=== PATIENT | female | born 1945 | race Two or more races ===

== ENCOUNTER 2017-11-09 00:33 | Emergency (ER) | payer OTHER ==
[2017-11-09 00:50] VITALS: BP 134/65; PULSE 79; TEMP 98; BMI 26.9
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
[2017-11-09] MEDS ORDERED: ACETAMINOPHEN 325 MG TABLET (FP) PO ONE (01:07)
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
[2017-11-09] MEDS ORDERED: ACETAMINOPHEN 325 MG TABLET (FP) ONE (01:57)
== END 2017-11-09 02:23 | disposition home or self-care (01) ==
LOC: JER 00:33
DX: S90.31XA Contusion of right foot, initial encounter (principal); V98.8XXA Other specified transport accidents, initial encounter; Y93.89 Activity, other specified; Y92.89 Other specified places as the place of occurrence of the external cause; Y99.8 Other external cause status
CPT/HCPCS: 73523-TC-FY; 73560-TC-RT-FY; 73590-TC-RT-FY; 73630-TC-RT-FY; 99281-25

== ENCOUNTER 2018-02-01 02:10 | Observation (INO) | payer OTHER ==
--- NOTE | 2018-02-01 02:33 | PDOC ---
History of Present Illness - General Stated Complaint: CHEST PAIN Time Seen by Provider: 02/01/18 02:33 Past History - Travel Traveled outside of the country in the last 30 days: No Close contact w/someone who was outside of country & ill: No - Past Medical History Allergies/Adverse Reactions: Allergies Allergy/AdvReac Type Severity Reaction Status Date / Time adhesive tape Allergy Severe Itching Verified 02/01/18 02:52 aspirin Allergy Verified 02/01/18 02:52 codeine Allergy Verified 02/01/18 02:52 levofloxacin [From Levaquin] Allergy Verified 02/01/18 02:52 Penicillins Allergy Verified 02/01/18 02:52 Sulfa (Sulfonamide Allergy Verified 02/01/18 02:52 Antibiotics) PAPER TAPE Allergy Uncoded 02/01/18 02:52 Home Medications: Ambulatory Orders Glipizide [Glipizide ER] 2.5 mg PO BID 08/06/13 Metoprolol Tartrate [Lopressor -] 50 mg PO DAILY 08/06/13 Telmisartan/Hydrochlorothiazid [Micardis Hct 80-25 mg Tablet] 1 each PO BID 08/16 Clopidogrel Bisulfate [Plavix -] 75 mg PO DAILY 05/16/14 Atorvastatin Ca [Lipitor] 40 mg PO DAILY 10/10/15 Levothyroxine [Synthroid -] 88 mcg PO DAILY 10/10/15 Anemia: No Asthma: No Cancer: No Cardiac Disorders: Yes (LBBB; CHEST PAIN - 1 YR AGO) CVA: No COPD: No CHF: No Dementia: No Diabetes: Yes GI Disorders: No Disorders: No HTN: Yes Hypercholesterolemia: Yes Liver Disease: No Seizures: No Thyroid Disease: Yes (HYPO) - Surgical History Abdominal Surgery: No Appendectomy: No Cholecystectomy: No Orthopedic Surgery: No - Suicide/Smoking/Psychosocial Hx Smoking History: Never smoked Have you smoked in the past 12 months: No Hx Alcohol Use: No Drug/Substance Use Hx: No Substance Use Type: None Review of Systems - Review of Systems Constitutional: No: Symptoms Reported, See HPI, Chills, Diaphoresis, Fever, Loss of Appetite, Malaise, Night Sweats, Weakness, Weight Stable, Unintentional Wgt. Loss, Unexplained wgt Loss, Other HEENTM: No: Symptoms Reported, See HPI, Eye Pain, Blurred Vision, Tearing, Recent change in vision, Double Vision, Cataracts, Ear Pain, Ocular Prothesis, Ear Discharge, Nose Pain, Nose Congestion, Tinnitus, Nose Bleeding, Hearing Loss , Throat Pain, Throat Swelling, Mouth Pain, Dental Problems, Difficulty Swallowing, Mouth Swelling, Other Respiratory: No: Symptoms reported, See HPI, Cough, Orthopnea, Shortness of Breath, SOB with Exertion, SOB at Rest, Stridor, Wheezing, Productive cough, Hemoptysis, Other Cardiac (ROS): No: Symptoms Reported, See HPI, Chest Pain, Edema, Irregular Heart Rate, Lightheadedness, Palpitations, Syncope, Chest Tightness, Other ABD/GI: Yes: Indigestion (pt ate a bunch of lentils today). No: Symptoms Reported, See HPI, Abdominal Distended, Abd. Pain w/ defecation, Blood Streaked Bowels, Constipated, Diarrhea, Difficulty Swallowing, Nausea, Poor Appetite, Poor Fluid Intake, Rectal Bleeding, Vomiting, Abdominal cramping, Tarry Stools, Other : No: Symptoms Reported, See HPI, Burning, Dysuria, Discharge, Frequency, Flank Pain, Hematuria, Incontinence, Pain, Urgency, Testicular Mass, Testicular Swelling, Lesions, Testicular Pain, Other Musculoskeletal: No: Symptoms Reported, See HPI, Back Pain, Gout, Joint Pain, Joint Swelling, Muscle Pain, Muscle Weakness, Neck Pain, Joint Stiffness, Other Integumentary: No: Symptoms Reported, See HPI, Bruising, Change in Color, Change in Hair/Nails, Dryness, Erythema, Flushing, Lesions, Lumps, Pallor, Pruritus, Rash, Sweating, Other Neurological: No: Symptoms reported, See HPI, Headache, Numbness, Paresthesia, Pre-Existing Deficit, Seizure, Tingling, Tremors, Weakness, Unsteady Gait, Ataxia, Dizziness, Other *Physical Exam - Physical Exam General Appearance: Yes: Nourished, Appropriately Dressed. No: Apparent Distress HEENT: positive: EOMI, JANAK, Normal ENT Inspection, Normal Voice, Symmetrical, TMs Normal, Pharynx Normal Neck: positive: Trachea midline, Supple Respiratory/Chest: positive: Lungs Clear, Normal Breath Sounds. negative: Respiratory Distress Cardiovascular: positive: Regular Rhythm, Regular Rate, S1, S2 Gastrointestinal/Abdominal: positive: Normal Bowel Sounds, Flat, Soft Musculoskeletal: positive: Normal Inspection. 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, Fully Oriented, Alert, Normal Mood/ Affect, Normal Response, Motor Strength 5/5 Heart Score/ECG Review - History History: Slightly suspicious - Electrocardiogram EKG: Non specific repolarization disturbance - Age Age: >/= 65 - Risk Factors Risk Factors Heart Score: Yes Hx Hypercholesterolemia, Yes Hx Hypertension, Yes Hx Diabetes Based on the list above the patient has:: >/=3 risk factors or Hx atherosclerotic disease - Troponin Troponin: </= normal limit - Score Heart Score - Total: 5 - ECG Intrepretation Rhythm: Regular Rhythm - Brock Brock: Left Brock Deviation - QRS Widened: LBBB ED Treatment Course - LABORATORY CBC & Chemistry Diagram: 02/01/18 03:00 02/01/18 03:00 Medical Decision Making - Medical Decision Making 02/01/18 03:00 Pt comes with left side CP that radiates to her left arm. Pt describes it as a heaviness. She has no SOB and she has no fever and no musculoskeletal tenderness. She has an old LBBB on the EKG. 02/01/18 03:02 Pt's CXR and labs are pending and we may admit her to her PMD Devin Richmond vs just checking a 2nd cardiac enzyme. 02/01/18 04:[address] Richmond, who agrees that pt can be admitted to the hospitalist. *DC/Admit/Observation/Transfer Diagnosis at time of Disposition: Chest pain - Discharge Dispostion Condition at time of disposition: Guarded Decision to Admit order: Yes - Referrals Referrals: Devin Richmond MD [Primary Care Provider] - - Patient Instructions - Post Discharge Activity
[2018-02-01] MEDS ORDERED: MAG HYDROX/AL HYDROX/SIMETH 30 ML UNIT-DOSE CUP PO ONE (02:44)
[2018-02-01 02:53] VITALS: BMI 26.6
[2018-02-01] MEDS ORDERED: MAG HYDROX/AL HYDROX/SIMETH 30 ML UNIT-DOSE CUP ONE (02:55)
[2018-02-01 03:00] LABS: URINE APPEARANCE CLEAR; URINE BILIRUBIN NEGATIVE (<2.0 mg/dL); URINE COLOR COLORLESS; URINE GLUCOSE (UA) NEGATIVE (NEGATIVE); URINE KETONE NEGATIVE (NEGATIVE); URINE LEUK ESTERASE TRACE (NEGATIVE); URINE NITRITE NEGATIVE (NEGATIVE); URINE PROTEIN NEGATIVE (NEGATIVE); URINE UROBILINOGEN NEGATIVE mg/dL (0.2-1.0)
[2018-02-01 03:12] LABS: BASO % 0.4 % (0-2.0); HEMATOCRIT 37.2 % (32.4-45.2); HEMOGLOBIN 12.3 GM/dL (10.7-15.3); LYMPH % 37.7 % (8-40); MCH 29.9 pg (25.7-33.7); MCHC 33.2 g/dl (32.0-36.0); MEAN PLT VOLUME 9.7 fl (7.5-11.1); MONO % 5.9 % (3.8-10.2); PLATELET COUNT 177 K/MM3 (134-434); RBC 4.13 M/mm3 (3.60-5.2); RDW 13.4 % (11.6-15.6); WHITE BLOOD COUNT 8.6 K/mm3 (4.0-10.0)
[2018-02-01 03:24] LABS: PROTHROMBIN TIME (PATIENT) 11.8 SEC (9.7-13.0)
[2018-02-01 03:35] LABS: ALK PHOS 90 U/L (45-117); ANION GAP 7 MMOL/L (8-16); BILIRUBIN,TOTAL 0.3 mg/dL (0.2-1); BLOOD UREA NITROGEN 33 mg/dL (7-18); CALCIUM 8.9 mg/dL (8.5-10.1); CHLORIDE 100 mmol/L (98-107); CO2 28 mmol/L (21-32); CREATININE 1.2 mg/dL (0.55-1.3); GLUCOSE,RANDOM 89 mg/dL (74-106); POTASSIUM 3.9 mmol/L (3.5-5.1); SGOT/AST 28 U/L (15-37); SGPT/ALT 37 U/L (13-61); SODIUM 135 mmol/L (136-145); TOT PROT 7.5 g/dl (6.4-8.2)
[2018-02-01] MEDS ORDERED: ACETAMINOPHEN 325 MG TABLET (FP) PO PRN (05:22)
--- NOTE | 2018-02-01 05:38 | HP ---
CHIEF COMPLAINT: Chest discomfort PCP: Devin Richmond HISTORY OF PRESENT ILLNESS: 72 yo Female with PMH HTN, known LBBB, Hypothyroidism, NIDDM, presented to the ED with complaint of chest discomfort that began last night. She says it began before going to bed. She though if she lied down it would resolve, though it actually got worse and began to radiate to her axilla. She describes the pain as sharp discomfort. She states the pain is still there and has not completely resolved, though the mylanta given earlier did provide some relief and decreased her burping. She is also endorsing some LLQ pain that comes and goes that started today. Denies any recent fever, chills, infection, nausea, vomiting , diarrhea. She says her bowel movements are regular and she denies any blood in her stool at any point ER course was notable for: (1) ECG: known LBBB, no acute ischemic changes (2) Troponin negative (3) Mylanta given with some relief Recent Travel: None PAST MEDICAL HISTORY: HTN, LBBB, Hypothyroidism, NIDDM PAST SURGICAL HISTORY: Social History: Smoking: none Alcohol: none Drugs: none Family History: Allergies adhesive tape Allergy (Severe, Verified 02/01/18 02:52) Itching RASH aspirin Allergy (Verified 02/01/18 02:52) codeine Allergy (Verified 02/01/18 02:52) levofloxacin [From Levaquin] Allergy (Verified 02/01/18 02:52) Penicillins Allergy (Verified 02/01/18 02:52) Sulfa (Sulfonamide Antibiotics) Allergy (Verified 02/01/18 02:52) PAPER TAPE Allergy (Uncoded 02/01/18 02:52) HOME MEDICATIONS: Home Medications Medication Instructions Recorded Glipizide [Glipizide ER] 2.5 mg PO BID 08/06/13 Metoprolol Tartrate [Lopressor -] 50 mg PO DAILY 08/06/13 Telmisartan/Hydrochlorothiazid 1 each PO BID 08/06/13 [Micardis Hct 80-25 mg Tablet] Clopidogrel Bisulfate [Plavix -] 75 mg PO DAILY 05/16/14 Atorvastatin Ca [Lipitor] 40 mg PO DAILY 10/10/15 Levothyroxine [Synthroid -] 88 mcg PO DAILY 10/10/15 REVIEW OF SYSTEMS CONSTITUTIONAL: Absent: fever, chills, diaphoresis, generalized weakness, malaise, loss of appetite, weight change HEENT: Absent: rhinorrhea, nasal congestion, throat pain, throat swelling, difficulty swallowing, mouth swelling, ear pain, eye pain, visual changes CARDIOVASCULAR: chest pain Absent: , syncope, palpitations, irregular heart rate, lightheadedness, peripheral edema RESPIRATORY: cough, dyspnea with exertion Absent: , shortness of breath, orthopnea, wheezing, stridor, hemoptysis GASTROINTESTINAL: abdominal pain, Absent: abdominal distension, nausea, vomiting, diarrhea, constipation, melena , hematochezia GENITOURINARY: Absent: dysuria, frequency, urgency, hesitancy, hematuria, flank pain, genital pain MUSCULOSKELETAL: Absent: myalgia, arthralgia, joint swelling, back pain, neck pain SKIN: Absent: rash, itching, pallor HEMATOLOGIC/IMMUNOLOGIC: Absent: easy bleeding, easy bruising, lymphadenopathy, frequent infections ENDOCRINE: Absent: unexplained weight gain, unexplained weight loss, heat intolerance, cold intolerance NEUROLOGIC: Absent: headache, focal weakness or paresthesias, dizziness, unsteady gait, seizure, mental status changes, bladder or bowel incontinence PSYCHIATRIC: Absent: anxiety, depression, suicidal or homicidal ideation, hallucinations. PHYSICAL EXAMINATION Vital Signs - 24 hr 02/01/18 02:20 Temperature 98.6 F Pulse Rate 75 Respiratory 18 Rate Blood Pressure 146/55 L O2 Sat by Pulse 97 Oximetry (%) GENERAL: A&O, no acute distress HEAD: Normocephalic, atraumatic. EYES: PERRL, no scleral icterus EARS, NOSE, THROAT: oropharynx clear without exudates. Moist mucous membranes. NECK: supple without lymphadenopathy LUNGS: CTA b/l, no crackles or wheezes HEART: Regular rate and rhythm, normal S1 and S2, 2/6 systolic murmur ABDOMEN: Soft, nontender to palpation, normoactive bowel sounds MUSCULOSKELETAL: No bony deformities or tenderness. EXTREMITIES: 2+ pulses, warm, well-perfused. No peripheral edema. NEUROLOGICAL: Cranial nerves II-XII grossly intact. Normal speech. PSYCHIATRIC: Cooperative. Good eye contact. Appropriate mood and affect. Laboratory Results - last 24 hr 02/01/18 02/01/18 02/01/18 02:46 03:00 03:00 WBC 8.6 RBC 4.13 Hgb 12.3 Hct 37.2 MCV 90.0 MCH 29.9 MCHC 33.2 RDW 13.4 Plt Count 177 D MPV 9.7 Absolute Neuts (auto) 4.5 Neutrophils % 52.0 D Lymphocytes % 37.7 D Monocytes % 5.9 Eosinophils % 4.0 Basophils % 0.4 Nucleated RBC % 0 PT with INR INR Sodium 135 L Potassium 3.9 Chloride 100 Carbon Dioxide 28 Anion Gap 7 L BUN 33 H Creatinine 1.2 Creat Clearance w eGFR 44.16 Random Glucose 89 Calcium 8.9 Total Bilirubin 0.3 AST 28 ALT 37 Alkaline Phosphatase 90 Creatine Kinase 271 H Creatine Kinase Index 2.1 CK-MB (CK-2) 5.9 H Troponin I < 0.02 Total Protein 7.5 Albumin 4.0 Cholesterol Urine Color Colorless Urine Appearance Clear Urine pH 5.0 Ur Specific [place] 1.004 Urine Protein Negative Urine Glucose (UA) Negative Urine Ketones Negative Urine Blood Negative Urine Nitrite Negative Urine Bilirubin Negative Urine Urobilinogen Negative Ur Leukocyte Esterase Trace Urine WBC (Auto) 1 Urine RBC (Auto) None 02/01/18 02/01/18 03:00 03:00 WBC RBC Hgb Hct MCV MCH MCHC RDW Plt Count MPV Absolute Neuts (auto) Neutrophils % Lymphocytes % Monocytes % Eosinophils % Basophils % Nucleated RBC % PT with INR 11.80 INR 1.00 Sodium Potassium Chloride Carbon Dioxide Anion Gap BUN Creatinine Creat Clearance w eGFR Random Glucose Calcium Total Bilirubin AST ALT Alkaline Phosphatase Creatine Kinase Creatine Kinase Index CK-MB (CK-2) Troponin I Total Protein Albumin Cholesterol 121 Urine Color Urine Appearance Urine pH Ur Specific [place] Urine Protein Urine Glucose (UA) Urine Ketones Urine Blood Urine Nitrite Urine Bilirubin Urine Urobilinogen Ur Leukocyte Esterase Urine WBC (Auto) Urine RBC (Auto) ASSESSMENT/PLAN: 72 yo Female with PMH HTN, known LBBB, Hypothyroidism, NIDDM placed into observation for chest pain with known LBBB, pt on plavix daily, r/o ACS. R/O ACS -Pt with worsening pain upon lying down flat which radiates to axilla -ECG noted with prior LBBB, Troponin negative, CK-MB noted 5.9 -Repeat Troponin and Repeat ECG @ 800 -Cardiology consult placed -Pt did receive some relief from mylanta, will add PRN -Tylenol 650 mg PO PRN Q6 HTN -Resume home BP meds -Telmisartan/HCTZ 80-25 mg PO Daily HLD -Lipitor 40 mg PO HS Hypothyroidism -Continue synthroid 88 mcg PO Daily @ 7:00 NIDDM -Held home meds -BGMs ACHS -Insulin Sliding Scale for glycemic control DVT Prophylaxis -Pt on plavix 75 mg PO Daily FEN -Fluids: none -Electrolytes: No electrolyte abnormalities, BMP in AM -Nutrition: Low Salt diet Disposition Tele Obs Visit type - Emergency Visit Emergency Visit: Yes Care time: The patient presented to the Emergency Department on the above date and was hospitalized for further evaluation of their emergent condition. - New Patient This patient is new to me today: Yes Date on this admission: 02/01/18 - Critical Care Critical Care patient: No Hospitalist Screening - Colonoscopy Questionnaire Colonoscopy Questionnaire: Colonoscopy Questionnaire - Patient: 50 - 75 years old and never had a screening colonoscopy: No History of colon or rectal polyps, or CA: No History of IBD, Crohn's disease or UC: No History of abdominal radiation therapy as a child: No - Relative: 1 with colon or rectal CA, or polyps at age 60 or younger: No Colon or rectal CA diagnosed at age 45 or younger: No Multiple relatives with colon or rectal CA: No - Outcome: Screening Result: Negative Screen
[2018-02-01] MEDS: INSULIN SLIDING SCALE (NOVOLOG) 1 VIAL SQ SCH ×2 (06:00→11:51)
--- NOTE | 2018-02-01 06:27 | PN ---
Teaching Attending Note Name of Resident: Ruddy May ATTENDING PHYSICIAN STATEMENT I saw and evaluated the patient. I reviewed the resident's note and discussed the case with the resident. I agree with the resident's findings and plan as documented. SUBJECTIVE: OBJECTIVE: ASSESSMENT AND PLAN: 72 y/o F with hypothyrodism LBBB, HTN, DM, DL presented to the hospital for atypical chest pain that is reproducible patient is also complaining of worsening SOB for the past few days, without any swelling admitted for hospital to r/o ACS plan: - admit to the hospital to tele obs -Aspirin - statin - trend trop - trend ecg - cardiology consultation - c/w home medication - c/w levothyroxine - echocardiogram
[2018-02-01] MEDS ORDERED: LEVOTHYROXINE NA 88 MCG TABLET (FP) PO SCH (07:00)
[2018-02-01 08:24] LABS: HEMATOCRIT 38.3 % (32.4-45.2); HEMOGLOBIN 12.4 GM/dL (10.7-15.3); MCHC 32.3 g/dl (32.0-36.0); MEAN CELL VOLUME 89.9 fl (80-96); PLATELET COUNT 176 K/MM3 (134-434); RBC 4.27 M/mm3 (3.60-5.2); RDW 13.3 % (11.6-15.6); WHITE BLOOD COUNT 8.5 K/mm3 (4.0-10.0)
[2018-02-01 08:40] LABS: INR 0.99 (0.83-1.09); PROTHROMBIN TIME (PATIENT) 11.7 SEC (9.7-13.0)
[2018-02-01 08:54] LABS: ANION GAP 7 MMOL/L (8-16); BLOOD UREA NITROGEN 27 mg/dL (7-18); CALCIUM 9.4 mg/dL (8.5-10.1); CHLORIDE 98 mmol/L (98-107); CO2 27 mmol/L (21-32); CREATININE 1.2 mg/dL (0.55-1.3); GLUCOSE,RANDOM 228 mg/dL (74-106); POTASSIUM 3.8 mmol/L (3.5-5.1); SODIUM 132 mmol/L (136-145)
[2018-02-01] MEDS ORDERED: CLOPIDOGREL BISULFATE 75 MG TABLET (FP) PO SCH (10:00)
[2018-02-01] MEDS ORDERED: PATIENT'S OWN MEDICATION (NON-FORMULARY) (Telmisartan/Hydrochlorothiazid [Micardis Hct 80- PO SCH (10:00)
[2018-02-01] MEDS ORDERED: ATORVASTATIN CA 40 MG TABLET (FP) PO SCH (10:00)
[2018-02-01] MEDS ORDERED: METOPROLOL TARTRATE 50 MG TABLET (FP) PO SCH ×2 (10:00→22:00)
[2018-02-01] MEDS ORDERED: BUDESONIDE/FORMETEROL FUMARATE 160/4.5 mcg INHALER IH SCH (12:00)
[2018-02-01] MEDS ORDERED: LOSARTAN POTASSIUM 50 MG TABLET (FP) PO SCH (12:00)
[2018-02-01] MEDS ORDERED: HYDROCHLOROTHIAZIDE 12.5 MG CAPSULE (FP) PO SCH (12:00)
--- NOTE | 2018-02-01 15:05 | DS ---
Physical Exam: SUBJECTIVE: Patient seen and examined, reports minimal pain below left breast, tender to touch and worse with twisting and left shoulder elevation. OBJECTIVE: Vital Signs Period Temp Pulse Resp BP Sys/Beebe Pulse Ox Last 24 Hr 97.5 F-98.6 F 66-77 17-20 116-147/43-68 97-100 PHYSICAL EXAM GENERAL: The patient is awake, alert, and fully oriented, in no acute distress. HEAD: Normal with no signs of trauma. EYES: PERRL, extraocular movements intact, sclera anicteric, conjunctiva clear. ENT: Ears normal, nares patent, oropharynx clear without exudates, moist mucous membranes. NECK: Trachea midline, full range of motion, supple. LUNGS: Breath sounds equal, clear to auscultation bilaterally, no wheezes, no crackles, no accessory muscle use. MUSCULOSKELETAL: tenderness over chest wall below left breast, pain with left arm movements, rull ROM left shoulder with no swelling/erythema or concerns. HEART: Regular rate and rhythm, S1, S2 without murmur, rub or gallop. ABDOMEN: Soft, nontender, nondistended, normoactive bowel sounds, no guarding, no rebound, no hepatosplenomegaly, no masses. EXTREMITIES: 2+ pulses, warm, well-perfused, no edema. NEUROLOGICAL: Cranial nerves II through XII grossly intact. Normal speech, gait not observed. PSYCH: Normal mood, normal affect. SKIN: Warm, dry, normal turgor, no rashes or lesions noted. LABS Laboratory Results - last 24 hr 02/01/18 02/01/18 02/01/18 02:46 03:00 03:00 WBC 8.6 RBC 4.13 Hgb 12.3 Hct 37.2 MCV 90.0 MCH 29.9 MCHC 33.2 RDW 13.4 Plt Count 177 D MPV 9.7 Absolute Neuts (auto) 4.5 Neutrophils % 52.0 D Lymphocytes % 37.7 D Monocytes % 5.9 Eosinophils % 4.0 Basophils % 0.4 Nucleated RBC % 0 PT with INR INR Sodium 135 L Potassium 3.9 Chloride 100 Carbon Dioxide 28 Anion Gap 7 L BUN 33 H Creatinine 1.2 Creat Clearance w eGFR 44.16 POC Glucometer Random Glucose 89 Calcium 8.9 Total Bilirubin 0.3 AST 28 ALT 37 Alkaline Phosphatase 90 Creatine Kinase 271 H Creatine Kinase Index 2.1 CK-MB (CK-2) 5.9 H Troponin I < 0.02 B-Natriuretic Peptide Total Protein 7.5 Albumin 4.0 Cholesterol Urine Color Colorless Urine Appearance Clear Urine pH 5.0 Ur Specific [place] 1.004 Urine Protein Negative Urine Glucose (UA) Negative Urine Ketones Negative Urine Blood Negative Urine Nitrite Negative Urine Bilirubin Negative Urine Urobilinogen Negative Ur Leukocyte Esterase Trace Urine WBC (Auto) 1 Urine RBC (Auto) None 02/01/18 02/01/18 02/01/18 03:00 03:00 05:58 WBC RBC Hgb Hct MCV MCH MCHC RDW Plt Count MPV Absolute Neuts (auto) Neutrophils % Lymphocytes % Monocytes % Eosinophils % Basophils % Nucleated RBC % PT with INR 11.80 INR 1.00 Sodium Potassium Chloride Carbon Dioxide Anion Gap BUN Creatinine Creat Clearance w eGFR POC Glucometer 102.64360 Random Glucose Calcium Total Bilirubin AST ALT Alkaline Phosphatase Creatine Kinase Creatine Kinase Index CK-MB (CK-2) Troponin I B-Natriuretic Peptide Total Protein Albumin Cholesterol 121 Urine Color Urine Appearance Urine pH Ur Specific [place] Urine Protein Urine Glucose (UA) Urine Ketones Urine Blood Urine Nitrite Urine Bilirubin Urine Urobilinogen Ur Leukocyte Esterase Urine WBC (Auto) Urine RBC (Auto) 02/01/18 02/01/18 02/01/18 08:08 08:08 08:08 WBC 8.5 RBC 4.27 Hgb 12.4 Hct 38.3 MCV 89.9 MCH 29.0 MCHC 32.3 RDW 13.3 Plt Count 176 MPV 10.0 Absolute Neuts (auto) Neutrophils % Lymphocytes % Monocytes % Eosinophils % Basophils % Nucleated RBC % PT with INR INR Sodium 132 L Potassium 3.8 Chloride 98 Carbon Dioxide 27 Anion Gap 7 L BUN 27 H Creatinine 1.2 Creat Clearance w eGFR 44.16 POC Glucometer Random Glucose 228 H Calcium 9.4 Total Bilirubin AST ALT Alkaline Phosphatase Creatine Kinase Creatine Kinase Index CK-MB (CK-2) Troponin I < 0.02 B-Natriuretic Peptide 65.9 Total Protein Albumin Cholesterol Urine Color Urine Appearance Urine pH Ur Specific [place] Urine Protein Urine Glucose (UA) Urine Ketones Urine Blood Urine Nitrite Urine Bilirubin Urine Urobilinogen Ur Leukocyte Esterase Urine WBC (Auto) Urine RBC (Auto) 02/01/18 02/01/18 08:08 11:51 WBC RBC Hgb Hct MCV MCH MCHC RDW Plt Count MPV Absolute Neuts (auto) Neutrophils % Lymphocytes % Monocytes % Eosinophils % Basophils % Nucleated RBC % PT with INR 11.70 INR 0.99 Sodium Potassium Chloride Carbon Dioxide Anion Gap BUN Creatinine Creat Clearance w eGFR POC Glucometer 143.34283 Random Glucose Calcium Total Bilirubin AST ALT Alkaline Phosphatase Creatine Kinase Creatine Kinase Index CK-MB (CK-2) Troponin I B-Natriuretic Peptide Total Protein Albumin Cholesterol Urine Color Urine Appearance Urine pH Ur Specific [place] Urine Protein Urine Glucose (UA) Urine Ketones Urine Blood Urine Nitrite Urine Bilirubin Urine Urobilinogen Ur Leukocyte Esterase Urine WBC (Auto) Urine RBC (Auto) HOSPITAL COURSE: Date of Admission:02/01/18 Date of Discharge: 02/01/18 Minutes to complete discharge: 35 Discharge Summary Reason For Visit: CHEST PAIN Current Active Problems Chest pain (Acute) Hospital Course: Patient reported chest pain below left breast area, reproducible to touch and worsened with left arm movements. She was watched on telemetry with no events, ACS was ruled out. Her LBBB was confirmed to be old. She reported being taken off Plavix outpatient and only taking ASA daily. Her symptoms had improved with no concerns or limitation in activity. She was evaluated by cardiology Dr. Gibbs and deemed stable for discharge with outpatient follow up. Condition: Good - Instructions Diet, Activity, Other Instructions: You were watch on monitor and heart attack was ruled out. You were seen by special events manager and deemed stable for discharge. Please continue all your medications as before and follow up with your regular doctor and special events manager in 1 week. Call 911 or come to ED if worsening pain, trouble breathing, fevers, chills, new cough or any new concerns noted. Referrals: Devin Richmond MD [Primary Care Provider] - Disposition: HOME - Home Medications Comprehensive Discharge Medication List: Ambulatory Orders Glipizide [Glipizide ER] 2.5 mg PO BID 08/06/13 Metoprolol Tartrate [Lopressor -] 50 mg PO BID 08/06/13 Telmisartan/Hydrochlorothiazid [Micardis Hct 80-25 mg Tablet] 1 each PO DAILY Atorvastatin Ca [Lipitor] 80 mg PO DAILY 10/10/15 Aspirin [ASA -] 81 mg PO DAILY 02/01/18 Budesonide/Formeterol Fumarate [SYMBICORT 160/4.5mcg -] 2 inh PO BID 02/01/18 Calcium Carbonate [Calcium] 500 mg PO DAILY 02/01/18 Cholecalciferol (Vitamin D3) [Vitamin D3] 5,000 unit PO DAILY 02/01/18 Metformin HCl [Glucophage] 500 mg PO DAILY 02/01/18 Multivitamin/Iron/Folic Acid [Centrum Adults Tablet] 1 each PO DAILY 02/01/18 Spironolactone [Aldactone] 50 mg PO DAILY 02/01/18 This patient is new to me today: Yes Date on this admission: 02/01/18 Emergency Visit: Yes ED Registration Date: 02/01/18 Care time: The patient presented to the Emergency Department on the above date and was hospitalized for further evaluation of their emergent condition. Critical Care patient: No - Discharge Referral Referred to [facility] No
[2018-02-01 15:25] VITALS: BP 118/58; PULSE 73; TEMP 98
--- NOTE | 2018-02-02 06:13 | EKG ---
Test Reason : Blood Pressure : / mmHG Vent. Rate : 076 BPM Atrial Rate : 076 BPM P-R Int : 146 ms QRS Dur : 134 ms QT Int : 440 ms P-R-T Axes : 055 -13 111 degrees QTc Int : 495 ms NORMAL SINUS RHYTHM LEFT BUNDLE BRANCH BLOCK ABNORMAL ECG WHEN COMPARED WITH ECG OF 01-FEB-2018 02:25, NO SIGNIFICANT CHANGE WAS FOUND Confirmed by NERIS ALCARAZ MD ([id number]) on 02/02/2018 6:13:11 AM Referred By: Confirmed By:NERIS ALCARAZ MD
--- NOTE | 2018-02-02 06:15 | EKG ---
Test Reason : Blood Pressure : / mmHG Vent. Rate : 074 BPM Atrial Rate : 074 BPM P-R Int : 148 ms QRS Dur : 130 ms QT Int : 430 ms P-R-T Axes : 046 -18 112 degrees QTc Int : 477 ms NORMAL SINUS RHYTHM LEFT BUNDLE BRANCH BLOCK ABNORMAL ECG WHEN COMPARED WITH ECG OF 26-MAY-2014 07:06, PREMATURE VENTRICULAR COMPLEXES ARE NO LONGER PRESENT Confirmed by LISSA ORTIZ, NERIS ([id number]) on 02/02/2018 6:14:53 AM Referred By: Confirmed By:NERIS ALCARAZ MD
== END 2018-02-01 15:15 | disposition home or self-care (01) ==
LOC: JER 02:10 → JERBED 04:09
PROVIDERS: ADMIT Internal Medicine; ATTEND Hospitalist
DX: R07.9 Chest pain, unspecified (principal); I10 Essential (primary) hypertension; E78.5 Hyperlipidemia, unspecified; E11.9 Type 2 diabetes mellitus without complications; E03.9 Hypothyroidism, unspecified; I44.7 Left bundle-branch block, unspecified; Z88.0 Allergy status to penicillin; Z88.1 Allergy status to other antibiotic agents; Z88.2 Allergy status to sulfonamides; Z88.5 Allergy status to narcotic agent; Z88.6 Allergy status to analgesic agent; Z91.048 Other nonmedicinal substance allergy status; Z79.84 Long term (current) use of oral hypoglycemic drugs
CPT/HCPCS: 36415; 71046-TC-FY; 80048; 80053; 81003; 81015; 82465; 82550; 82553; 82962; 83880; 84484; 85025; 85027; 85610; 93005; 93010; 99284-25; G0378

== ENCOUNTER 2020-10-04 00:04 | Inpatient (IN) | payer OTHER ==
[2020-10-04 02:04] LABS: BASO % 0.5 % (0-2.0); HEMATOCRIT 35.7 % (32.4-45.2); HEMOGLOBIN 11.7 GM/dL (10.7-15.3); LYMPH % 19.6 % (8-40); MCH 28.9 pg (25.7-33.7); MCHC 32.9 g/dl (32.0-36.0); MEAN CELL VOLUME 87.8 fl (80-96); MEAN PLT VOLUME 9.9 fl (7.5-11.1); NEUT % 74.9 % (42.8-82.8); PLATELET COUNT 257 K/MM3 (134-434); RBC 4.07 M/mm3 (3.60-5.2); RDW 13.1 % (11.6-15.6); WHITE BLOOD COUNT 11.9 K/mm3 (4.0-10.0)
[2020-10-04 02:23] LABS: CHLORIDE 89 mmol/L (98-107); SODIUM 121 mmol/L (136-145)
[2020-10-04 02:25] LABS: CALCIUM 8.9 mg/dL (8.5-10.1)
[2020-10-04 02:26] LABS: ALBUMIN 4.1 g/dl (3.4-5.0); ANION GAP 8 MMOL/L (8-16); BLOOD UREA NITROGEN 40.2 mg/dL (7-18); CO2 24 mmol/L (21-32); GLUCOSE,RANDOM 203 mg/dL (74-106)
[2020-10-04 02:29] LABS: SGOT/AST 44 U/L (15-37); SGPT/ALT 36 U/L (13-61)
[2020-10-04 02:31] LABS: BILIRUBIN,TOTAL 0.6 mg/dL (0.2-1); TOT PROT 7.8 g/dl (6.4-8.2)
[2020-10-04 02:32] LABS: ALK PHOS 120 U/L (45-117)
[2020-10-04 02:34] LABS: N-TERMINAL BNP 107.5 pg/ml (5-450)
[2020-10-04] MEDS ORDERED: MAG HYDROX/AL HYDROX/SIMETH 30 ML UNIT-DOSE CUP PO ONE (02:45)
[2020-10-04] MEDS ORDERED: MAG HYDROX/AL HYDROX/SIMETH 30 ML UNIT-DOSE CUP ONE (02:49)
[2020-10-04 02:52] LABS: CREATININE 1.7 mg/dL (0.55-1.3)
[2020-10-04] MEDS ORDERED: SODIUM CHLORIDE 0.9% 500 ML INFUS.BAG IV ONE (03:13)
[2020-10-04] MEDS ORDERED: ACETAMINOPHEN 1000 MG/100 ML VIAL (NON FORMULARY) IVPB ONE (03:26)
[2020-10-04] MEDS ORDERED: ASPIRIN 81 MG CHEWABLE TABLETS PO ONE (03:30)
[2020-10-04] MEDS ORDERED: ASPIRIN 81 MG CHEWABLE TABLETS ONE ×2 (04:08→09:43)
[2020-10-04] MEDS ORDERED: ACETAMINOPHEN INJECTION 100 ML IVPB ONE ×2 (04:08→05:21)
[2020-10-04 05:08] LABS: URINE APPEARANCE CLEAR; URINE BILIRUBIN NEGATIVE (NEGATIVE); URINE COLOR YELLOW; URINE GLUCOSE (UA) TRACE (NEGATIVE); URINE KETONE NEGATIVE (NEGATIVE); URINE LEUK ESTERASE NEGATIVE (NEGATIVE); URINE NITRITE NEGATIVE (NEGATIVE); URINE PROTEIN NEGATIVE (NEGATIVE); URINE UROBILINOGEN 0.2 mg/dL (0.2-1.0)
[2020-10-04] MEDS ORDERED: MAG HYDROX/AL HYDROX/SIMETH 30 ML UNIT-DOSE CUP PO PRN (06:26)
[2020-10-04] MEDS ORDERED: SODIUM ZIRCONIUM CYCLOSILICATE (LOKELMA) 5 GM PACKET PO ONE (06:27)
[2020-10-04] MEDS ORDERED: CALCIUM GLUCONATE 10% - 1,000 MG/10 ML VIAL IVPUSH ONE (06:27)
[2020-10-04] MEDS ORDERED: INSULIN REGULAR HUMAN 100 UNITS/ML *VIAL SQ ONE (06:27)
[2020-10-04] MEDS ORDERED: SODIUM CHLORIDE 1,000 ML IV SCH (06:30)
[2020-10-04] MEDS ORDERED: DEXTROSE 50%-WATER - 25 GM/50 ML VIAL IVPUSH ONE (06:31)
[2020-10-04] MEDS ORDERED: SODIUM CHLORIDE 1,000 ML IV STA (07:01)
[2020-10-04] MEDS ORDERED: LEVOTHYROXINE NA 25 MCG TABLET (FP) ONE (08:03)
[2020-10-04] MEDS ORDERED: HEPARIN NA (PORCINE) 5,000 UNITS/ML 1ML VIAL ONE (08:04)
[2020-10-04] MEDS: HEPARIN NA (PORCINE) 5,000 UNITS/ML 1ML VIAL SQ SCH ×3 (08:07→21:07)
[2020-10-04] MEDS: LEVOTHYROXINE NA 50 MCG TABLET (FP) PO SCH (08:07)
[2020-10-04] MEDS: INSULIN SLIDING SCALE (NOVOLOG) 1 VIAL SQ SCH ×4 (08:27→21:06)
[2020-10-04] MEDS ORDERED: METOPROLOL TARTRATE 50 MG TABLET (FP) ONE (09:43)
[2020-10-04] MEDS ORDERED: FAMOTIDINE 20 MG/50 ML IVPB 20 MG/50 ML MG IVPB ONE (09:43)
[2020-10-04] MEDS: METOPROLOL TARTRATE 50 MG TABLET (FP) PO SCH ×2 (09:46→09:52)
[2020-10-04] MEDS: ASPIRIN 81 MG CHEWABLE TABLETS PO SCH ×2 (09:46→09:52)
[2020-10-04] MEDS: FAMOTIDINE 20 MG/50 ML IVPB 20 MG/50 ML MG IVPB SCH (09:46)
[2020-10-04] MEDS ORDERED: METOCLOPRAMIDE HCL INJECTION 10 MG/2 ML VIAL IVPUSH PRN (10:03)
[2020-10-04 10:16] LABS: BASO % 0.5 % (0-2.0); EOS % 2.2 % (0-4.5); HEMATOCRIT 34.4 % (32.4-45.2); HEMOGLOBIN 11.4 GM/dL (10.7-15.3); LYMPH % 26.7 % (8-40); MCHC 33.1 g/dl (32.0-36.0); MEAN CELL VOLUME 87.6 fl (80-96); MEAN PLT VOLUME 9.3 fl (7.5-11.1); MONO % 5.3 % (3.8-10.2); NEUT % 65.3 % (42.8-82.8); PLATELET COUNT 238 K/MM3 (134-434); RBC 3.93 M/mm3 (3.60-5.2); RDW 13.1 % (11.6-15.6)
[2020-10-04 10:44] LABS: ALBUMIN 3.7 g/dl (3.4-5.0); CALCIUM 8.8 mg/dL (8.5-10.1); MAGNESIUM 2.1 mg/dL (1.8-2.4)
[2020-10-04 10:47] LABS: CREATININE 1.4 mg/dL (0.55-1.3)
[2020-10-04 10:49] LABS: BILIRUBIN,TOTAL 0.6 mg/dL (0.2-1); TOT PROT 6.6 g/dl (6.4-8.2)
[2020-10-04 16:12] LABS: CALCIUM 9.4 mg/dL (8.5-10.1)
[2020-10-04 16:13] LABS: BLOOD UREA NITROGEN 34.1 mg/dL (7-18)
[2020-10-04 16:16] LABS: CREATININE 1.4 mg/dL (0.55-1.3)
[2020-10-04 16:17] LABS: BILIRUBIN,TOTAL 0.4 mg/dL (0.2-1); TOT PROT 7.4 g/dl (6.4-8.2)
[2020-10-04] MEDS ORDERED: INSULIN (NOVOLOG) ASPART 100 UNITS/ML 10ML VIAL ONE (20:53)
[2020-10-04] MEDS: ATORVASTATIN CA 80 MG TABLET (FP) PO SCH (21:06)
[2020-10-05] MEDS: HEPARIN NA (PORCINE) 5,000 UNITS/ML 1ML VIAL SQ SCH ×3 (06:03→22:20)
[2020-10-05] MEDS: INSULIN SLIDING SCALE (NOVOLOG) 1 VIAL SQ SCH ×4 (06:04→22:20)
[2020-10-05] MEDS: LEVOTHYROXINE NA 50 MCG TABLET (FP) PO SCH (06:04)
[2020-10-05 08:32] LABS: BASO % 0.7 % (0-2.0); EOS % 2.9 % (0-4.5); HEMATOCRIT 36.6 % (32.4-45.2); HEMOGLOBIN 12.1 GM/dL (10.7-15.3); LYMPH % 29.1 % (8-40); MCH 28.9 pg (25.7-33.7); MEAN CELL VOLUME 87.7 fl (80-96); MEAN PLT VOLUME 9.7 fl (7.5-11.1); MONO % 6.5 % (3.8-10.2); NEUT % 60.8 % (42.8-82.8); PLATELET COUNT 234 K/MM3 (134-434); RBC 4.17 M/mm3 (3.60-5.2); RDW 13.3 % (11.6-15.6); WHITE BLOOD COUNT 9.8 K/mm3 (4.0-10.0)
[2020-10-05 09:02] LABS: ALBUMIN 3.8 g/dl (3.4-5.0); CALCIUM 9.3 mg/dL (8.5-10.1); MAGNESIUM 2.3 mg/dL (1.8-2.4)
[2020-10-05 09:05] LABS: CREATININE 1.3 mg/dL (0.55-1.3)
[2020-10-05 09:06] LABS: PHOSPHOROUS 3.7 mg/dL (2.5-4.9)
[2020-10-05 09:07] LABS: BILIRUBIN,TOTAL 0.6 mg/dL (0.2-1); TOT PROT 7.1 g/dl (6.4-8.2)
[2020-10-05] MEDS: FAMOTIDINE 20 MG/50 ML IVPB 20 MG/50 ML MG IVPB SCH (09:57)
[2020-10-05] MEDS ORDERED: PANTOPRAZOLE 20 MG TABLET PO SCH (10:00)
[2020-10-05] MEDS: MULTIVITAMINS (DAILY MVI) TABLET (FP) PO SCH (10:01)
[2020-10-05] MEDS: ASPIRIN 81 MG CHEWABLE TABLETS PO SCH (10:02)
[2020-10-05] MEDS ORDERED: ACETAMINOPHEN 325 MG TABLET (FP) PO PRN (10:55)
[2020-10-05] MEDS ORDERED: PANTOPRAZOLE 40 MG TABLET PO SCH (11:00)
[2020-10-05] MEDS ORDERED: SODIUM CHLORIDE 500 ML IV STA (11:01)
[2020-10-05] MEDS ORDERED: INSULIN (NOVOLOG) ASPART 100 UNITS/ML 10ML VIAL ONE (11:55)
[2020-10-05] MEDS: ATORVASTATIN CA 80 MG TABLET (FP) PO SCH (22:19)
[2020-10-06] MEDS: HEPARIN NA (PORCINE) 5,000 UNITS/ML 1ML VIAL SQ SCH ×3 (06:20→21:20)
[2020-10-06] MEDS: INSULIN SLIDING SCALE (NOVOLOG) 1 VIAL SQ SCH ×5 (06:20→21:37)
[2020-10-06 07:05] VITALS: BMI 25.7
[2020-10-06 07:29] LABS: BASO % 0.4 % (0-2.0); EOS % 2.7 % (0-4.5); HEMATOCRIT 34.4 % (32.4-45.2); HEMOGLOBIN 11.5 GM/dL (10.7-15.3); LYMPH % 31.6 % (8-40); MCH 29.5 pg (25.7-33.7); MCHC 33.5 g/dl (32.0-36.0); MEAN CELL VOLUME 88.1 fl (80-96); MEAN PLT VOLUME 10.3 fl (7.5-11.1); MONO % 5.6 % (3.8-10.2); NEUT % 59.7 % (42.8-82.8); PLATELET COUNT 234 K/MM3 (134-434); RDW 13.2 % (11.6-15.6); WHITE BLOOD COUNT 10.4 K/mm3 (4.0-10.0)
[2020-10-06 07:54] LABS: CALCIUM 8.9 mg/dL (8.5-10.1)
[2020-10-06 07:55] LABS: ALBUMIN 3.6 g/dl (3.4-5.0); BLOOD UREA NITROGEN 34.1 mg/dL (7-18); MAGNESIUM 2.3 mg/dL (1.8-2.4)
[2020-10-06 07:58] LABS: BILIRUBIN,TOTAL 0.6 mg/dL (0.2-1); CREATININE 1.2 mg/dL (0.55-1.3); PHOSPHOROUS 3.4 mg/dL (2.5-4.9); TOT PROT 6.7 g/dl (6.4-8.2)
[2020-10-06] MEDS: LEVOTHYROXINE NA 50 MCG TABLET (FP) PO SCH (10:47)
[2020-10-06] MEDS: MULTIVITAMINS (DAILY MVI) TABLET (FP) PO SCH (10:47)
[2020-10-06] MEDS: FAMOTIDINE 10 MG TABLET PO SCH ×2 (10:47→10:51)
[2020-10-06] MEDS ORDERED: INSULIN (NOVOLOG) ASPART 100 UNITS/ML 10ML VIAL ONE ×2 (17:08→21:08)
[2020-10-06] MEDS: METOCLOPRAMIDE HCL 10 MG TABLET (FP) PO SCH (17:23)
[2020-10-06] MEDS: LACTOBACILLUS ACIDOPHILUS 1 TABLET PO SCH (17:56)
[2020-10-06] MEDS: ATORVASTATIN CA 80 MG TABLET (FP) PO SCH (21:20)
[2020-10-07] MEDS: HEPARIN NA (PORCINE) 5,000 UNITS/ML 1ML VIAL SQ SCH ×3 (06:06→21:50)
[2020-10-07] MEDS: METOCLOPRAMIDE HCL 10 MG TABLET (FP) PO SCH ×2 (06:06→10:41)
[2020-10-07] MEDS: LEVOTHYROXINE NA 50 MCG TABLET (FP) PO SCH (06:08)
[2020-10-07] MEDS: INSULIN SLIDING SCALE (NOVOLOG) 1 VIAL SQ SCH ×4 (06:09→21:33)
[2020-10-07] MEDS: INSULIN (LEVEMIR) 100 UNITS/ML UNITS SQ SCH (06:11)
[2020-10-07 07:13] LABS: BASO % 0.6 % (0-2.0); EOS % 3.4 % (0-4.5); HEMATOCRIT 33.4 % (32.4-45.2); HEMOGLOBIN 11.2 GM/dL (10.7-15.3); LYMPH % 36.5 % (8-40); MCH 29.3 pg (25.7-33.7); MCHC 33.5 g/dl (32.0-36.0); MEAN CELL VOLUME 87.7 fl (80-96); MEAN PLT VOLUME 9.5 fl (7.5-11.1); MONO % 6.1 % (3.8-10.2); NEUT % 53.4 % (42.8-82.8); PLATELET COUNT 228 K/MM3 (134-434); RBC 3.81 M/mm3 (3.60-5.2); RDW 13.2 % (11.6-15.6); WHITE BLOOD COUNT 8.9 K/mm3 (4.0-10.0)
[2020-10-07 07:54] LABS: CALCIUM 9.1 mg/dL (8.5-10.1)
[2020-10-07 07:56] LABS: ALBUMIN 3.6 g/dl (3.4-5.0); MAGNESIUM 2.2 mg/dL (1.8-2.4)
[2020-10-07 07:59] LABS: CREATININE 1.2 mg/dL (0.55-1.3); PHOSPHOROUS 3.7 mg/dL (2.5-4.9)
[2020-10-07 08:00] LABS: BILIRUBIN,TOTAL 0.7 mg/dL (0.2-1)
[2020-10-07 08:01] LABS: TOT PROT 6.5 g/dl (6.4-8.2)
[2020-10-07] MEDS ORDERED: AZITHROMYCIN 250 MG TABLET PO SCH (10:00)
[2020-10-07] MEDS: LACTOBACILLUS ACIDOPHILUS 1 TABLET PO SCH (10:39)
[2020-10-07] MEDS: FAMOTIDINE 10 MG TABLET PO SCH (10:39)
[2020-10-07] MEDS: MULTIVITAMINS (DAILY MVI) TABLET (FP) PO SCH (10:40)
[2020-10-07] MEDS: FAMOTIDINE 20 MG TABLET PO SCH ×2 (12:59→21:50)
[2020-10-07] MEDS: ATORVASTATIN CA 80 MG TABLET (FP) PO SCH (21:50)
[2020-10-08] MEDS: LEVOTHYROXINE NA 50 MCG TABLET (FP) PO SCH (06:04)
[2020-10-08] MEDS: INSULIN SLIDING SCALE (NOVOLOG) 1 VIAL SQ SCH (06:04)
[2020-10-08 06:35] LABS: BASO % 0.5 % (0-2.0); EOS % 3.9 % (0-4.5); HEMATOCRIT 36.4 % (32.4-45.2); LYMPH % 38.3 % (8-40); MCH 29.3 pg (25.7-33.7); MCHC 33.1 g/dl (32.0-36.0); MEAN CELL VOLUME 88.5 fl (80-96); MONO % 6.3 % (3.8-10.2); PLATELET COUNT 252 K/MM3 (134-434); RBC 4.11 M/mm3 (3.60-5.2); RDW 13.3 % (11.6-15.6); WHITE BLOOD COUNT 11.2 K/mm3 (4.0-10.0)
[2020-10-08] MEDS: INSULIN (LEVEMIR) 100 UNITS/ML UNITS SQ SCH (06:42)
[2020-10-08] MEDS: HEPARIN NA (PORCINE) 5,000 UNITS/ML 1ML VIAL SQ SCH (06:42)
[2020-10-08] MEDS ORDERED: ACETAMINOPHEN 325 MG TABLET (FP) PO PRN (07:02)
[2020-10-08 07:09] LABS: ALBUMIN 3.9 g/dl (3.4-5.0); BLOOD UREA NITROGEN 29.4 mg/dL (7-18); CALCIUM 9.4 mg/dL (8.5-10.1); MAGNESIUM 2.5 mg/dL (1.8-2.4)
[2020-10-08 07:12] LABS: CREATININE 1.2 mg/dL (0.55-1.3); PHOSPHOROUS 3.8 mg/dL (2.5-4.9)
[2020-10-08 07:13] LABS: BILIRUBIN,TOTAL 0.6 mg/dL (0.2-1); TOT PROT 7.2 g/dl (6.4-8.2)
[2020-10-08] MEDS: LACTOBACILLUS ACIDOPHILUS 1 TABLET PO SCH (09:47)
[2020-10-08] MEDS: FAMOTIDINE 20 MG TABLET PO SCH (09:47)
[2020-10-08] MEDS ORDERED: MULTIVITAMINS (DAILY MVI) TABLET (FP) PO SCH (10:00)
[2020-10-08] MEDS ORDERED: INSULIN SLIDING SCALE (NOVOLOG) 1 VIAL SQ SCH (11:00)
[2020-10-08] MEDS ORDERED: HEPARIN NA (PORCINE) 5,000 UNITS/ML 1ML VIAL SQ SCH (14:00)
[2020-10-08 14:30] VITALS: BP 122/67; PULSE 82; TEMP 97.4
[2020-10-08] MEDS ORDERED: ATORVASTATIN CA 80 MG TABLET (FP) PO SCH (22:00)
[2020-10-08] MEDS ORDERED: LACTOBACILLUS ACIDOPHILUS 1 TABLET PO SCH (22:00)
[2020-10-09] MEDS ORDERED: LEVOTHYROXINE NA 50 MCG TABLET (FP) PO SCH (07:00)
== END 2020-10-08 15:54 | disposition home or self-care (01) | DRG 683 ==
LOC: JER 00:04 → JERBED 05:56 → J5S 11:59 → J4W 10-05 12:48
PROVIDERS: ADMIT Hospitalist; ATTEND Internal Medicine
DX: N17.9 Acute kidney failure, unspecified (principal); E87.1 Hypo-osmolality and hyponatremia; K90.41 Non-celiac gluten sensitivity; R11.2 Nausea with vomiting, unspecified; E11.65 Type 2 diabetes mellitus with hyperglycemia; I11.0 Hypertensive heart disease with heart failure; I50.9 Heart failure, unspecified; E78.5 Hyperlipidemia, unspecified; E03.9 Hypothyroidism, unspecified; R10.11 Right upper quadrant pain; R63.0 Anorexia; R68.81 Early satiety; K29.70 Gastritis, unspecified, without bleeding; K27.9 Peptic ulcer, site unspecified, unspecified as acute or chronic, without hemorrhage or perforation; E11.43 Type 2 diabetes mellitus with diabetic autonomic (poly)neuropathy; I95.9 Hypotension, unspecified; E86.0 Dehydration
CPT/HCPCS: 36415; 71045-TC-FY; 74176-TC; 74240-TC-FY; 76705-TC; 80053; 81003; 82010; 82533; 82550; 82553; 82962; 83036; 83735; 83880; 83930; 83935; 84100; 84132; 84300; 84436; 84443; 84484; 85025; 86677; 87086; 93005; 93010; 99285-25; C9803; J0131; J1644; U0003; U0005

== ENCOUNTER 2021-03-12 02:00 | Observation (INO) | payer OTHER ==
[2021-03-12 03:20] LABS: BASO % 0.4 % (0-2.0); EOS % 1.5 % (0-4.5); HEMOGLOBIN 11.8 GM/dL (10.7-15.3); LYMPH % 15.7 % (8-40); MCH 26.9 pg (25.7-33.7); MCHC 32.7 g/dl (32.0-36.0); MEAN CELL VOLUME 82.2 fl (80-96); MEAN PLT VOLUME 8.7 fl (7.5-11.1); MONO % 3.8 % (3.8-10.2); NEUT % 78.6 % (42.8-82.8); PLATELET COUNT 275 10^3/uL (134-434); RBC 4.38 M/mm3 (3.60-5.2); RDW 14.9 % (11.6-15.6); WHITE BLOOD COUNT 11.8 K/mm3 (4.0-10.0)
[2021-03-12 03:23] LABS: EPI CELLS 2 /uL (0-25.1); HYALINE CASTS 0 /uL (0-3.1); URINE APPEARANCE CLEAR; URINE BACTERIA 18 /uL (0-1359); URINE BILIRUBIN NEGATIVE (NEGATIVE); URINE COLOR YELLOW; URINE GLUCOSE (UA) 2+ (NEGATIVE); URINE KETONE NEGATIVE (NEGATIVE); URINE LEUK ESTERASE TRACE (NEGATIVE); URINE NITRITE NEGATIVE (NEGATIVE); URINE PROTEIN NEGATIVE (NEGATIVE); URINE RBC 1 /uL (0-23.9); URINE UROBILINOGEN 0.2 mg/dL (0.2-1.0); URINE WBC 5 /uL (0-25.8)
[2021-03-12 03:25] LABS: PROTHROMBIN TIME (PATIENT) 11.7 SEC (9.7-13.0)
[2021-03-12 03:42] LABS: ALBUMIN 3.8 g/dl (3.4-5.0); BLOOD UREA NITROGEN 14.2 mg/dL (7-18)
[2021-03-12 03:45] LABS: CREATININE 1.4 mg/dL (0.55-1.3); PHOSPHOROUS 2.6 mg/dL (2.5-4.9)
[2021-03-12 03:46] LABS: BILIRUBIN,TOTAL 0.4 mg/dL (0.2-1); TOT PROT 7.2 g/dl (6.4-8.2)
[2021-03-12] MEDS ORDERED: SODIUM CHLORIDE 1,000 ML IV SCH (04:45)
[2021-03-12] MEDS ORDERED: SIMETHICONE 80 MG TAB.CHEW (FP) PO ONE (05:07)
[2021-03-12] MEDS ORDERED: FAMOTIDINE 20 MG TABLET PO ONE (05:07)
[2021-03-12] MEDS ORDERED: LEVOTHYROXINE NA 25 MCG TABLET (FP) ONE (05:07)
[2021-03-12] MEDS: hydrALAZINE HCL 25 MG TABLET (FP) PO SCH ×3 (05:27→21:56)
[2021-03-12] MEDS: HEPARIN NA (PORCINE) 5,000 UNITS/ML 1ML VIAL SQ SCH ×3 (05:27→21:56)
[2021-03-12] MEDS ORDERED: LEVOTHYROXINE NA 50 MCG TABLET (FP) PO ONE (06:00)
[2021-03-12 06:58] LABS: BASO % 0.8 % (0-2.0); EOS % 2.1 % (0-4.5); HEMATOCRIT 35.2 % (32.4-45.2); HEMOGLOBIN 11.9 GM/dL (10.7-15.3); LYMPH % 27.9 % (8-40); MCH 27.8 pg (25.7-33.7); MCHC 33.9 g/dl (32.0-36.0); MEAN PLT VOLUME 8.8 fl (7.5-11.1); MONO % 5.2 % (3.8-10.2); PLATELET COUNT 253 10^3/uL (134-434); RBC 4.29 M/mm3 (3.60-5.2); RDW 14.8 % (11.6-15.6); WHITE BLOOD COUNT 10.2 K/mm3 (4.0-10.0)
[2021-03-12 07:23] LABS: ALBUMIN 3.5 g/dl (3.4-5.0); BLOOD UREA NITROGEN 13.2 mg/dL (7-18)
[2021-03-12 07:26] LABS: CREATININE 1.2 mg/dL (0.55-1.3)
[2021-03-12 07:27] LABS: BILIRUBIN,TOTAL 0.4 mg/dL (0.2-1); PHOSPHOROUS 2.5 mg/dL (2.5-4.9); TOT PROT 6.7 g/dl (6.4-8.2)
[2021-03-12] MEDS ORDERED: INSULIN SLIDING SCALE (NOVOLOG) 1 VIAL SQ ONE (08:05)
[2021-03-12] MEDS: INSULIN SLIDING SCALE (NOVOLOG) 1 VIAL SQ SCH ×3 (08:30→22:00)
[2021-03-12] MEDS: HYDROCHLOROTHIAZIDE 25 MG TABLET (FP) PO SCH (10:00)
[2021-03-12] MEDS ORDERED: HYDROCHLOROTHIAZIDE 25 MG TABLET (FP) ONE (10:49)
[2021-03-12] MEDS ORDERED: LOSARTAN POTASSIUM 50 MG TABLET ONE (10:49)
[2021-03-12] MEDS: LOSARTAN POTASSIUM 50 MG TABLET PO SCH (14:18)
[2021-03-12] MEDS ORDERED: HEPARIN NA (PORCINE) 5,000 UNITS/ML 1ML VIAL ONE (14:40)
[2021-03-12] MEDS ORDERED: hydrALAZINE HCL 25 MG TABLET (FP) ONE (14:40)
[2021-03-12 20:30] VITALS: BMI 25.3
[2021-03-13] MEDS: HEPARIN NA (PORCINE) 5,000 UNITS/ML 1ML VIAL SQ SCH ×2 (06:19→13:58)
[2021-03-13] MEDS: hydrALAZINE HCL 25 MG TABLET (FP) PO SCH ×2 (06:19→13:58)
[2021-03-13] MEDS: HYDROCHLOROTHIAZIDE 25 MG TABLET (FP) PO SCH (06:21)
[2021-03-13] MEDS: INSULIN SLIDING SCALE (NOVOLOG) 1 VIAL SQ SCH ×2 (06:26→12:08)
[2021-03-13 06:30] VITALS: PULSE 74
[2021-03-13] MEDS: LOSARTAN POTASSIUM 50 MG TABLET PO SCH (06:38)
[2021-03-13] MEDS ORDERED: LEVOTHYROXINE NA 50 MCG TABLET (FP) PO SCH (07:00)
[2021-03-13] MEDS ORDERED: HYDROCHLOROTHIAZIDE 25 MG TABLET (FP) PO SCH (07:00)
[2021-03-13 07:35] LABS: BASO % 0.8 % (0-2.0); HEMATOCRIT 36.5 % (32.4-45.2); HEMOGLOBIN 12.3 GM/dL (10.7-15.3); LYMPH % 47.5 % (8-40); MCH 27.5 pg (25.7-33.7); MCHC 33.6 g/dl (32.0-36.0); MONO % 6.2 % (3.8-10.2); NEUT % 41.5 % (42.8-82.8); PLATELET COUNT 265 10^3/uL (134-434); RBC 4.45 M/mm3 (3.60-5.2); RDW 14.8 % (11.6-15.6); WHITE BLOOD COUNT 8.5 K/mm3 (4.0-10.0)
[2021-03-13 07:53] LABS: ALBUMIN 3.4 g/dl (3.4-5.0); BLOOD UREA NITROGEN 19.2 mg/dL (7-18); CALCIUM 9.1 mg/dL (8.5-10.1)
[2021-03-13 07:56] LABS: CREATININE 1.2 mg/dL (0.55-1.3)
[2021-03-13 07:58] LABS: BILIRUBIN,TOTAL 0.5 mg/dL (0.2-1); TOT PROT 6.6 g/dl (6.4-8.2)
[2021-03-13] MEDS ORDERED: METOPROLOL TARTRATE 50 MG TABLET (FP) PO SCH (10:00)
[2021-03-13] MEDS ORDERED: FAMOTIDINE 20 MG TABLET PO SCH (10:00)
[2021-03-13 10:25] VITALS: BP 122/54; TEMP 98.3
== END 2021-03-13 16:32 | disposition home or self-care (01) ==
LOC: SUATTDRO 02:00 → JER 02:00 → JERBED 04:38 → J4W 20:21 → JERBED 20:23 → J4W 20:24
PROVIDERS: ADMIT Internal Medicine
PROC: 3E013VG Introduction of Insulin into Subcutaneous Tissue, Percutaneous Approach (ICD-10-PCS; principal; 2021-03-12)
DX: R07.9 Chest pain, unspecified (principal); R53.1 Weakness; F41.9 Anxiety disorder, unspecified; E11.65 Type 2 diabetes mellitus with hyperglycemia; N17.9 Acute kidney failure, unspecified; R10.11 Right upper quadrant pain; H81.10 Benign paroxysmal vertigo, unspecified ear; I10 Essential (primary) hypertension; Z91.09 Other allergy status, other than to drugs and biological substances; E78.00 Pure hypercholesterolemia, unspecified; J44.9 Chronic obstructive pulmonary disease, unspecified; I44.7 Left bundle-branch block, unspecified; K27.9 Peptic ulcer, site unspecified, unspecified as acute or chronic, without hemorrhage or perforation; K29.70 Gastritis, unspecified, without bleeding; E87.6 Hypokalemia; R00.2 Palpitations; Z88.6 Allergy status to analgesic agent; Z88.0 Allergy status to penicillin; Z88.8 Allergy status to other drugs, medicaments and biological substances
CPT/HCPCS: 36415; 70450-TC; 70551-TC; 71045-TC-FY; 76775-TC; 80053; 80061; 81003; 82550; 82553; 82962; 83036; 83735; 84100; 84300; 84439; 84443; 84484; 85025; 85610; 85730; 86850; 86900; 86901; 93005; 93010; 93306-TC; 93880-TC; 96372; 97116-GP; 97161-GP; 99285-25; C9803; G0378; J1644; U0003; U0005

== ENCOUNTER 2021-11-04 13:39 | Observation (INO) | payer OTHER ==
[2021-11-04 13:46] VITALS: BMI 25.7
[2021-11-04] MEDS ORDERED: MAG HYDROX/AL HYDROX/SIMETH -MYLANTA- ORAL SUSPENSION PO ONE (14:16)
[2021-11-04] MEDS ORDERED: FAMOTIDINE 20 MG/50 ML IVPB 20 MG/50 ML MG IVPB ONE ×2 (14:16→14:41)
[2021-11-04] MEDS ORDERED: TRIMETHOBENZAMIDE HCL 200MG/2ML INJ IM ONE ×2 (14:17→14:41)
[2021-11-04] MEDS ORDERED: MAG HYDROX/AL HYDROX/SIMETH 30 ML UNIT-DOSE CUP ONE (14:41)
[2021-11-04 14:44] LABS: BASO % 0.3 % (0-2.0); EOS % 0.7 % (0-4.5); HEMATOCRIT 37.6 % (32.4-45.2); HEMOGLOBIN 12.3 GM/dL (10.7-15.3); LYMPH % 14.2 % (8-40); MCH 27.9 pg (25.7-33.7); MCHC 32.8 g/dl (32.0-36.0); MEAN CELL VOLUME 85.1 fl (80-96); MEAN PLT VOLUME 9.2 fl (7.5-11.1); MONO % 2.8 % (3.8-10.2); PLATELET COUNT 230 10^3/uL (134-434); RBC 4.42 M/mm3 (3.60-5.2); RDW 14.3 % (11.6-15.6); WHITE BLOOD COUNT 12.8 K/mm3 (4.0-10.0)
[2021-11-04 15:07] LABS: ALBUMIN 3.8 g/dl (3.4-5.0); BLOOD UREA NITROGEN 18.4 mg/dL (7-18)
[2021-11-04] MEDS ORDERED: POTASSIUM CHLORIDE TABS 20 MEQ TABLET.ER (FP) PO ONE (15:07)
[2021-11-04] MEDS ORDERED: SODIUM CHLORIDE 0.9% 500 ML INFUS.BAG IV ONE (15:07)
[2021-11-04 15:10] LABS: CREATININE 1.1 mg/dL (0.55-1.3)
[2021-11-04 15:11] LABS: BILIRUBIN,TOTAL 0.6 mg/dL (0.2-1); TOT PROT 7.2 g/dl (6.4-8.2)
[2021-11-04 15:12] LABS: PH,URINE 6.5 (5.0-8.0); URINE APPEARANCE CLEAR; URINE BILIRUBIN NEGATIVE (NEGATIVE); URINE COLOR YELLOW; URINE GLUCOSE (UA) 1+ (NEGATIVE); URINE KETONE NEGATIVE (NEGATIVE); URINE LEUK ESTERASE NEGATIVE (NEGATIVE); URINE NITRITE NEGATIVE (NEGATIVE); URINE PROTEIN NEGATIVE (NEGATIVE); URINE UROBILINOGEN 0.2 mg/dL (0.2-1.0)
[2021-11-04 15:15] LABS: N-TERMINAL BNP 274.2 pg/ml (5-450)
[2021-11-04] MEDS ORDERED: POTASSIUM CHLORIDE ORAL LIQUID 20 MEQ/15 ML PO ONE (15:24)
[2021-11-04] MEDS ORDERED: POTASSIUM CHLORIDE ORAL LIQUID 20 MEQ/15 ML ONE (15:31)
[2021-11-04] MEDS ORDERED: ATORVASTATIN CA 80 MG TABLET (FP) ONE (20:51)
[2021-11-04] MEDS ORDERED: HEPARIN NA (PORCINE) 5,000 UNITS/ML 1ML VIAL ONE (20:51)
[2021-11-04] MEDS: ATORVASTATIN CA 80 MG TABLET (FP) PO SCH (20:55)
[2021-11-04] MEDS: HEPARIN NA (PORCINE) 5,000 UNITS/ML 1ML VIAL SQ SCH (20:55)
[2021-11-05] MEDS: INSULIN SLIDING SCALE (NOVOLOG) 1 VIAL SQ SCH ×3 (06:25→17:35)
[2021-11-05] MEDS ORDERED: LEVOTHYROXINE NA 50 MCG TABLET (FP) PO SCH (07:00)
[2021-11-05 08:01] LABS: BASO % 0.6 % (0-2.0); EOS % 2.9 % (0-4.5); HEMATOCRIT 35.9 % (32.4-45.2); HEMOGLOBIN 11.9 GM/dL (10.7-15.3); LYMPH % 33.7 % (8-40); MCH 28.3 pg (25.7-33.7); MEAN CELL VOLUME 85.6 fl (80-96); MEAN PLT VOLUME 9.6 fl (7.5-11.1); MONO % 6.3 % (3.8-10.2); NEUT % 56.5 % (42.8-82.8); PLATELET COUNT 215 10^3/uL (134-434); RBC 4.19 M/mm3 (3.60-5.2); WHITE BLOOD COUNT 8.8 K/mm3 (4.0-10.0)
[2021-11-05 08:19] LABS: CALCIUM 8.6 mg/dL (8.5-10.1)
[2021-11-05 08:20] LABS: ALBUMIN 3.7 g/dl (3.4-5.0)
[2021-11-05 08:23] LABS: CREATININE 1.1 mg/dL (0.55-1.3)
[2021-11-05 08:24] LABS: BILIRUBIN,TOTAL 0.5 mg/dL (0.2-1); TOT PROT 6.6 g/dl (6.4-8.2)
[2021-11-05] MEDS: VALSARTAN 80 MG TABLET PO SCH (09:07)
[2021-11-05] MEDS: ASPIRIN 81 MG CHEWABLE TABLETS PO SCH (09:07)
[2021-11-05] MEDS: HEPARIN NA (PORCINE) 5,000 UNITS/ML 1ML VIAL SQ SCH ×2 (09:07→22:18)
[2021-11-05] MEDS ORDERED: LEVOTHYROXINE NA 75 MCG TABLET (FP) PO SCH (11:01)
[2021-11-05] MEDS: HYDROCHLOROTHIAZIDE 25 MG TABLET (FP) PO SCH (12:07)
[2021-11-05] MEDS: ATORVASTATIN CA 80 MG TABLET (FP) PO SCH (22:18)
[2021-11-06] MEDS ORDERED: VALSARTAN 80 MG TABLET PO ONE (00:23)
[2021-11-06] MEDS ORDERED: amLODIPine BESYLATE 5 MG TABLET (FP) PO ONE (02:49)
[2021-11-06] MEDS: INSULIN SLIDING SCALE (NOVOLOG) 1 VIAL SQ SCH ×2 (06:44→10:09)
[2021-11-06] MEDS ORDERED: NIFEdipine E.R. 30 MG TABLET PO SCH (07:26)
[2021-11-06] MEDS ORDERED: ISOSORBIDE MONONITRATE 30 MG TAB.SR.24H (FP) PO SCH ×2 (07:27→10:00)
[2021-11-06 07:41] VITALS: TEMP 98
[2021-11-06] MEDS: ASPIRIN 81 MG CHEWABLE TABLETS PO SCH (09:00)
[2021-11-06] MEDS: HYDROCHLOROTHIAZIDE 25 MG TABLET (FP) PO SCH (09:00)
[2021-11-06] MEDS: HEPARIN NA (PORCINE) 5,000 UNITS/ML 1ML VIAL SQ SCH (09:00)
[2021-11-06] MEDS: VALSARTAN 80 MG TABLET PO SCH (09:01)
[2021-11-06] MEDS ORDERED: amLODIPine BESYLATE 5 MG TABLET (FP) PO SCH (10:00)
[2021-11-06 10:58] VITALS: BP 118/58; PULSE 67
== END 2021-11-06 13:24 | disposition home or self-care (01) ==
LOC: JER 13:39 → JERBED 16:09 → J4W 11-05 00:10
PROVIDERS: ADMIT Internal Medicine
PROC: 3E033GC Introduction of Other Therapeutic Substance into Peripheral Vein, Percutaneous Approach (ICD-10-PCS; principal; 2021-11-04)
PROC: 3E023GC Introduction of Other Therapeutic Substance into Muscle, Percutaneous Approach (ICD-10-PCS; 2021-11-04)
DX: I11.0 Hypertensive heart disease with heart failure (principal); E87.1 Hypo-osmolality and hyponatremia; E11.9 Type 2 diabetes mellitus without complications; R13.10 Dysphagia, unspecified; I50.30 Unspecified diastolic (congestive) heart failure; E78.5 Hyperlipidemia, unspecified; E87.6 Hypokalemia; Z86.73 Personal history of transient ischemic attack (TIA), and cerebral infarction without residual deficits; E03.9 Hypothyroidism, unspecified; I44.7 Left bundle-branch block, unspecified; R11.0 Nausea; K21.9 Gastro-esophageal reflux disease without esophagitis; M19.90 Unspecified osteoarthritis, unspecified site
CPT/HCPCS: 0241U-QW; 36415; 70450-TC; 71046-TC-FY; 73200-TC-RT; 74176-TC; 80053; 80061; 81003; 82607; 82962; 83036; 83690; 83880; 84443; 84484; 85025; 87086; 93005; 93010; 96365; 96372; 97116-GP; 97162-GP; 99285-25; G0378; J1644

== ENCOUNTER 2023-11-10 16:57 | Emergency (ER) | payer OTHER ==
[2023-11-10 17:15] VITALS: BP 150/52; PULSE 72; RESP 18; TEMP 98.2; BMI 26.5
[2023-11-10] MEDS ORDERED: ACETAMINOPHEN 500 MG TABLET (FP) ONE (18:12)
[2023-11-10] MEDS: ACETAMINOPHEN 500 MG TABLET (FP) PO ONE (18:17)
== END 2023-11-10 18:30 | disposition home or self-care (01) ==
LOC: JER 16:57 → JERFT 16:57
DX: M79.644 Pain in right finger(s) (principal); M25.562 Pain in left knee; M25.462 Effusion, left knee; V44.6XXA Car passenger injured in collision with heavy transport vehicle or bus in traffic accident, initial encounter
CPT/HCPCS: 73090-TC-RT-FY; 73110-TC-RT-FY; 73130-TC-RT-FY; 73564-TC-LT-FY; 99284-25